=== PATIENT | male | born 1960 | race Caucasian/White ===

== ENCOUNTER 2018-01-17 15:25 | Observation (INO) ==
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
[2018-01-17] MEDS ORDERED: traZODone 50 MG TABLET PO PRN (19:32)
[2018-01-17] MEDS ORDERED: ALPRAZolam 0.25 MG TABLET PO PRN (19:34)
[2018-01-17] MEDS: Albuterol 2.5 MG/3 ML NEBULIZER IH PRN (19:56)
[2018-01-17] MEDS: Budesonide/Formoterol 160/4.5 MDI IH SCH (19:58)
[2018-01-17] MEDS: Lactobacillus 1 EACH CAP.SPRINK PO SCH (21:31)
[2018-01-17] MEDS: Doxycycline 100 MG in 0.9 % Sodium Chloride Mini Bag 100 ML IVPB SCH (21:48)
[2018-01-18 06:47] LABS: Basophils % 0.4 %; Hematocrit 39.7 % (37.5-50.1); Hemoglobin 13.2 g/dL (12.9-16.9); Immature Granulocytes % 2.4 % (0-4); Lymphocytes # 1.5 K/mcL (0.6-4.6); Lymphocytes % 13.2 %; Mean Corpuscular HGB Conc 33.2 g/dL (31.6-35.5); Mean Corpuscular Hemoglobin 28.8 pg (28.0-33.3); Mean Corpuscular Volume 86.5 fL (83.0-100.0); Mean Platelet Volume 10.5 fL (9.4-12.4); Monocytes # 1.1 K/mcL (0.0-1.3); Monocytes % 9.2 %; Platelet Count 245 K/mcL (140-400); Red Blood Count 4.59 M/mcL (4.19-5.50); Red Cell Distribution Width 12.3 % (11.5-14.5); Segmented Neutrophils % 74.8 %
[2018-01-18 06:48] LABS: Basophils # 0.1 K/mcL (0.0-0.2); Neutrophils # 8.5 K/mcL (1.6-8.9)
[2018-01-18] MEDS: Albuterol 2.5 MG/3 ML NEBULIZER IH PRN ×4 (06:53→20:52)
[2018-01-18] MEDS: Lactobacillus 1 EACH CAP.SPRINK PO SCH ×2 (09:44→20:30)
[2018-01-18] MEDS: Tiotropium 18 MCG inhalation IH SCH (09:45)
[2018-01-18] MEDS: Budesonide/Formoterol 160/4.5 MDI IH SCH ×2 (09:46→20:52)
[2018-01-18] MEDS: Doxycycline 100 MG in 0.9 % Sodium Chloride Mini Bag 100 ML IVPB SCH ×2 (09:47→20:31)
--- NOTE | 2018-01-18 10:11 | Internal Med Progress Note ---
Date of Encounter: 01/18/18 Time of Encounter: 10:02 - Assessment and plan (1) COPD exacerbation Current Visit: No Status: Acute Assessment and plan: Continue IV antibiotics, expectorants, inhalers and inhalers. Will add prednisone. Anticipate discharge home tomorrow. (2) Hyperlipidemia Current Visit: Yes Status: Chronic Assessment and plan: January 18. Continue pravastatin and Fish oil Qualifiers: Hyperlipidemia type: unspecified Qualified Code(s): E78.5 - Hyperlipidemia , unspecified (3) Hypertension Current Visit: Yes Status: Chronic Assessment and plan: January 18. He was changed from verapamil to metoprolol. Heart rate and blood pressure are improved. Qualifiers: Hypertension type: essential hypertension Qualified Code(s): I10 - Essential (primary) hypertension - Subjective Interval history: January 18. He has no new complaints and feels better but not quite back to his baseline. - Constitutional Vitals: Temp Pulse Resp BP Pulse Ox 97.8 F 61 20 114/67 94 01/18/18 06:37 01/18/18 06:37 01/18/18 06:37 01/18/18 06:37 01/18/18 09:15 Exam: He is sitting on the side of the bed wearing oxygen. His lungs show diminished breath sounds diffusely with minimal audible wheezing. No expiratory wheezes or inspiratory crackles are heard. I reviewed his medications and lab results. Internal Medicine: Result - Labs CBC & Chem 7: 01/18/18 05:48 Labs: Short CBC 01/18/18 Range/Units 05:48 WBC 11.4 H (4.3-11.1) K/mcL Hgb 13.2 D (12.9-16.9) g/dL Hct 39.7 (37.5-50.1) % Plt Count 245 (140-400) K/mcL Neutrophils # 8.5 (1.6-8.9) K/mcL - Impressions Impressions Chest CT 01/17/18 19:30 IMPRESSION: 1. Significant emphysematous changes, worse in the upper lobes, but no acute lung parenchyma or pleural disease. 2. No evidence of active cardiovascular disease. D/ / 01/17/2018 20:33:39 Monik Varghese MD / earnold Interpreting Provider: Monik Varghese MD Consult Discharge Plan - Plan Referrals: Isacc Tejeda MD [Primary Care Provider] - 1 week
[2018-01-18] MEDS: predniSONE 20 MG TABLET PO SCH ×2 (13:55→17:28)
[2018-01-19 07:08] VITALS: BP 130/68
[2018-01-19] MEDS: Lactobacillus 1 EACH CAP.SPRINK PO SCH (08:08)
[2018-01-19] MEDS: Doxycycline 100 MG in 0.9 % Sodium Chloride Mini Bag 100 ML IVPB SCH (08:08)
[2018-01-19] MEDS: predniSONE 20 MG TABLET PO SCH (08:09)
[2018-01-19] MEDS: Albuterol 2.5 MG/3 ML NEBULIZER IH PRN (08:35)
[2018-01-19] MEDS: Tiotropium 18 MCG inhalation IH SCH (08:39)
[2018-01-19] MEDS: Budesonide/Formoterol 160/4.5 MDI IH SCH (08:40)
--- NOTE | 2018-01-19 08:44 | Discharge Summary ---
Date of Encounter: 01/19/18 Time of Encounter: 08:30 - Discharge Diagnosis (1) COPD exacerbation Priority: Primary Status: Acute (2) Hyperlipidemia Priority: Secondary Status: Chronic Qualifiers: Hyperlipidemia type: unspecified Qualified Code(s): E78.5 - Hyperlipidemia , unspecified (3) Hypertension Priority: Secondary Status: Chronic Qualifiers: Hypertension type: essential hypertension Qualified Code(s): I10 - Essential (primary) hypertension Hospital course: Mr. Sevilla is a 57 year old male who was transferred from [facility] emergency room to [facility] after presenting there with approximately 10 day history of dyspnea. He had received Zithromax and prednisone as an outpatient with little improvement. Evaluation in emergency room showed WBC elevated to 16.0 K with 90% segs. Because of lack of bed availability at [facility] he was transferred to [facility] and was admitted to [facility] MedSurg floor for ongoing care needs. I saw him on January 17 and performed a history and physical. He was started on IV Rocephin and doxycycline with lactobacillus. Chest CT was done to further evaluate. Chest CT showed significant emphysema changes worse in the upper lobes without acute lung parenchyma or pleural disease. He had clinical improvement with WBC decreasing to 11.4 by the following day. Lactic acid normalized. When I saw him on January 19 he felt stable for discharge home. He will continue with antibiotics, prednisone, and probiotic for 3 additional days at discharge. He had tachycardia on presentation. Verapamil was discontinued and he was started on low-dose metoprolol which improved his heart rate. He will continue this at discharge. Room air oximetry will be checked prior to discharge on 6 minute walk. - Time Spent with Patient Total time spent providing and/or coordinating discharge services: - Discharge Medications Prescriptions: Cefuroxime PO [Ceftin] 500 mg PO Q12HR #6 tablet Doxycycline 100 mg PO BID #6 capsule Lactobacillus [Culturelle] 1 each PO BID #6 cap.sprink Metoprolol XL (24 HR) Succ [Toprol XL] 25 mg PO DAILY #30 tab.er.24h predniSONE [PredniSONE] 10 mg PO BIDWM #6 tablet Home Medications: Aspirin 81 mg PO DAILY 01/18/16 [History] Fish Oil 1,000 mg PO BID 01/18/16 [History] Pravastatin Sodium 40 mg PO HS 01/18/16 [History] Albuterol Neb [Proventil Neb] 2.5 mg IH Q4HR 01/17/18 [History] Budesonide/Formoterol 160/4.5 [Symbicort 160/4.5] 2 puff IH BIDR 01/17/18 [ History] Buprenorphine HCl/Naloxone HCl [Suboxone 8 mg-2 mg Sl Film] 1 each SL BID [History] Tiotropium [Spiriva] 18 mcg BID 01/17/18 [History] Cefuroxime PO [Ceftin] 500 mg PO Q12HR #6 tablet 01/19/18 [Rx] Doxycycline 100 mg PO BID #6 capsule 01/19/18 [Rx] Lactobacillus [Culturelle] 1 each PO BID #6 cap.sprink 01/19/18 [Rx] Metoprolol XL (24 HR) Succ [Toprol XL] 25 mg PO DAILY #30 tab.er.24h 01/19/18 [ Rx] predniSONE [PredniSONE] 10 mg PO BIDWM #6 tablet 01/19/18 [Rx] Allergies/Adverse Reactions: 3 Allergy/AdvReac Type Severity Reaction Status Date / Time No Known Allergies Allergy Verified 01/17/18 13:25 Date of admission: 01/17/18 17:29 Primary care physician: Isacc Tejeda - Constitutional Vitals: Temp Pulse Resp BP Pulse Ox 98.0 F 80 17 130/68 98 01/19/18 07:07 01/19/18 07:07 01/19/18 07:07 01/19/18 07:07 01/19/18 07:07 - Patient Status Disposition: Home, Self-Care Functional capacity at discharge: independent ambulation Overall status at discharge: patient is progressing back to baseline - Discharge Instructions Follow Up With: Isacc Tejeda MD [Primary Care Provider] - 1 week - Diet and Activity Activity: resume usual activities as tolerated Diet: advance to your usual diet
== END 2018-01-19 11:30 | disposition home or self-care (01) ==
LOC: INPPIK
PROVIDERS: ADMIT Internal Medicine; ATTEND Internal Medicine